=== PATIENT | male | born 1980 | race American Indian/Alaskan Native ===

== ENCOUNTER 2016-10-28 03:56 | Emergency (ER) | payer MEDICAID, MEDICARE ==
[2016-10-28 04:18] VITALS: BP 131/91
[2016-10-28 05:00] LABS: Basophils % (Auto) 0.9 % (0.0-1.8); Eosinophils % (Auto) 2.1 % (0.0-4.3); Hematocrit 44.3 % (35.5-45.6); Hemoglobin 14.4 gm/dl (11.8-15.2); Mean Corpuscular HGB Conc 33 % (32-34); Mean Corpuscular Hemoglobin 28 pg (28-32); Mean Corpuscular Volume 85 fl (84-94); Platelet Count 277 K/mm3 (140-440); Red Blood Count 5.19 M/mm3 (3.65-5.03); Red Cell Distribution Width 13.3 % (13.2-15.2); White Blood Count 13.3 K/mm3 (4.5-11.0)
[2016-10-28 05:17] LABS: Anion Gap 21 mmol/L; BUN/Creatinine Ratio 26.66; Blood Urea Nitrogen 24 mg/dL (9-20); Calcium 9.2 mg/dL (8.4-10.2); Carbon Dioxide 23 mmol/L (22-30); Chloride 100.1 mmol/L (98-107); Glucose 86 mg/dL (75-100); Potassium 4.1 mmol/L (3.6-5.0); Sodium 140 mmol/L (137-145)
[2016-10-28 06:49] LABS: Bilirubin,Urine NEG (Negative); Blood,Urine NEG (Negative); Ketones,Urine NEG (Negative); Leukocyte Esterase,Urine NEG (Negative); Nitrite,Urine NEG (Negative); Protein,Urine <15 mg/dL mg/dL (Negative); Urobilinogen,Urine < 2.0 mg/dL (<2.0)
--- NOTE | 2016-10-28 07:42 | XRay Report ---
ROUTINE CHEST, TWO VIEWS: HISTORY: Shortness of breath. The trachea, heart, mediastinal contour, lung dove and bony thorax are unremarkable. IMPRESSION: Unremarkable chest x-ray.
[2016-10-28] MEDS ORDERED: DUONEB *Not for PRN Use IH ONE (08:07)
--- NOTE | 2016-10-28 08:12 | Emergency Department Report ---
HPI - General Chief Complaint: Back Pain/Injury Time Seen by Provider: 10/28/16 07:54 - HPI HPI: This is a 36-year-old -[place] male who presents to the emergency Department after driving himself and be seen with complaint of a 3 week history of a productive cough. The cough comes in waves and causes coughing fits and the patient says that lately he has been having some chest wall pain when he coughs. He also has developed some lower bilateral back pain. He denies any problems with bowel or bladder, numbness or paresthesias or any neurological deficits. He denies any fever, nausea, vomiting or diaphoresis. He denies any past medical history. He is a former smoker having quit 6 months ago. He did not take anything for symptoms prior to presentation. His primary care physician is Dr. Fine at [facility]. ED Past Medical Hx - Past Medical History Previous Medical History?: Yes Hx Hypertension: Yes Hx Seizures: Yes - Surgical History Past Surgical History?: Yes Additional Surgical History: left leg surgery (fracture at age 15). - Social History Smoking Status: Former Smoker Substance Use Type: Alcohol, Marijuana - Medications Home Medications: Home Medications Medication Instructions Recorded Confirmed Last Taken Type Benzonatate [Tessalon Perles] 100 mg PO Q8HR #30 capsule 04/27/15 Unknown Rx Ciprofloxacin HCl [Ciprofloxacin 500 mg PO BID #14 tablet 04/27/15 Unknown Rx TAB] HYDROcodone/APAP 5-325 [[place] 1 - 2 each PO Q6HR PRN #14 tablet 04/27/15 Unknown Rx 5/325] Ibuprofen [Motrin 800 MG tab] 800 mg PO Q8HR PRN #20 tablet 04/27/15 Unknown Rx Clindamycin [Clindamycin CAP] 450 mg PO Q8H #30 cap 09/01/15 Unknown Rx Ibuprofen [Motrin 800 MG tab] 800 mg PO Q8HR PRN #30 tablet 09/01/15 Unknown Rx ALBUTEROL Inhaler [ProAir HFA 2 puff IH QID PRN #1 inhalation 10/28/16 Unknown Rx Inhaler] Benzonatate [Tessalon Perles] 100 mg PO Q8HR PRN #20 capsule 10/28/16 Unknown Rx ED Review of Systems ROS: Stated complaint: CHEST PAIN/BACK PAIN/COUGH Other details as noted in HPI Comment: All other systems reviewed and negative Constitutional: denies: chills, fever Eyes: denies: eye pain, eye discharge, vision change ENT: denies: ear pain, throat pain Respiratory: cough. denies: shortness of breath Cardiovascular: denies: palpitations, edema Gastrointestinal: denies: abdominal pain, nausea, diarrhea Genitourinary: denies: urgency, dysuria Musculoskeletal: back pain. denies: arthralgia Skin: denies: rash, lesions Neurological: denies: headache, weakness, paresthesias Physical Exam - Physical Exam Vital Signs: Vital Signs 10/28/16 04:11 Temperature 98.8 F Pulse Rate 96 H Respiratory 18 Rate Blood Pressure 131/91 Physical Exam: GENERAL: The patient is well-developed well-nourished. HEENT: Normocephalic. Atraumatic. Extraocular motions are intact. Patient has moist mucous membranes. Pupils equal reactive to light bilaterally. NECK: Supple. Trachea is midline. CHEST/LUNGS: Clear to auscultation. There is no respiratory distress noted. A productive sounding cough is heard during examination with some coughing fits. No tachypnea or accessory muscle use. HEART/CARDIOVASCULAR: Regular. There is no tachycardia. There is no gallop rub or murmur. ABDOMEN: Abdomen is soft, nontender. Patient has normal bowel sounds. There is no abdominal distention. SKIN: Skin is warm and dry. NEURO: The patient is awake, alert, and oriented. The patient is cooperative. The patient has no focal neurologic deficits. The patient has normal speech. MUSCULOSKELETAL: There is no tenderness or deformity. There is no limitation range of motion. There is no evidence of acute injury. BACK: No midline thoracic or lumbar tenderness to palpation or deformity. There is reproducible lumbar paraspinal tenderness to palpation. ED Course Vital Signs 10/28/16 04:11 Temperature 98.8 F Pulse Rate 96 H Respiratory 18 Rate Blood Pressure 131/91 ED Medical Decision Making - Lab Data Result diagrams: 10/28/16 04:32 10/28/16 04:32 - EKG Data -: EKG Interpreted by Me EKG shows normal: sinus rhythm, axis, intervals, QRS complexes (early repolarization), ST-T waves Rate: normal - EKG Data When compared to previous EKG there are: previous EKG unavailable Interpretation: normal EKG - Radiology Data Radiology results: image reviewed interpreted by me: Chest x-ray did not show any acute process. Heart is normal shape and size. No effusions. No pneumothorax. No signs of pneumonia seen. - Medical Decision Making 36-year-old male presents to the emergency department with a three-week history of a cough. The cough is heard during examination with coughing fits but the patient does not appear in any respiratory distress. Chest x-ray does not show any pneumonia, pleural effusions or any acute process. Since the patient had some chest discomfort with the coughing he was evaluated with an EKG and labs as well. EKG does not show any signs of ST elevation MO or ischemia. Labs are unremarkable except for a mild leukocytosis but there is negative troponins 2. He was given a breathing treatment here and he had some improvement. The patient does not have any significant risk factors for coronary artery disease and only has chest discomfort while coughing and this appears consistent with enteritis or pleurisy. Patient most likely has an episode of bronchitis. He' ll be discharged home on albuterol inhaler and Tessalon Perles. He will return to the ER with any worsening of symptoms or any acute distress. He does not appear to have any of the emergent back condition such as cauda equina, cord compression syndrome or epidural abscess. - Differential Diagnosis asthma, bronchitis, pneumonia, MO Critical Care Time: No Critical care attestation.: If time is entered above; I have spent that time in minutes in the direct care of this critically ill patient, excluding procedure time. ED Disposition Clinical Impression: Chest wall pain Acute bronchitis Qualifiers: Bronchitis organism: unspecified organism Qualified Code(s): J20.9 - Acute bronchitis, unspecified Back pain Qualifiers: Back pain location: low back pain Chronicity: unspecified Back pain laterality : bilateral Sciatica presence: without sciatica Qualified Code(s): M54.5 - Low back pain Disposition: DC- TO HOME OR SELFCARE Is pt being admited?: No Condition: Stable Instructions: Costochondritis (ED), Acute Bronchitis (ED) Additional Instructions: Please follow-up with a primary care physician in the next few days. Return to the emergency department with any worsening of your symptoms or any acute distress. Prescriptions: ALBUTEROL Inhaler [ProAir HFA Inhaler] 2 puff IH QID PRN #1 inhalation PRN Reason: Shortness Of Breath Benzonatate [Tessalon Perles] 100 mg PO Q8HR PRN #20 capsule PRN Reason: Cough Referrals: PRIMARY CARE, [Primary Care Provider] - 3-5 Days Time of Disposition: 08:49
== END 2016-10-28 08:56 | disposition home or self-care (01) ==
LOC: ED 03:56
DX: J20.9 Acute bronchitis, unspecified (principal); R07.89 Other chest pain; M54.5 Low back pain; I10 Essential (primary) hypertension; F12.10 Cannabis abuse, uncomplicated; Z87.891 Personal history of nicotine dependence
CPT/HCPCS: 36415; 71020; 80048; 81001; 84484; 85025; 93005; 93010; 94640; 99284

== ENCOUNTER 2017-01-06 20:56 | Emergency (ER) | payer MEDICARE ==
--- NOTE | 2017-01-06 23:01 | Cat Scan Report ---
FINAL REPORT EXAM: CT HEAD/BRAIN WO CON HISTORY: SUDDEN HEADACHE TECHNIQUE: Noncontrast CT axial images of the brain. PRIORS: None. FINDINGS: No parenchymal mass, mass effect, hemorrhage, midline shift or hydrocephalus. No evidence of acute cortical infarct. No abnormal, extra-axial fluid or air collection. Osseous calvarium grossly intact. Mucosal thickening and opacification of the left sphenoid sinus. IMPRESSION: 1. No acute intracranial findings. 2. Sphenoid sinus disease.
[2017-01-06 23:02] LABS: Basophils % (Auto) 0.3 % (0.0-1.8); Eosinophils % (Auto) 0.1 % (0.0-4.3); Hemoglobin 14.4 gm/dl (11.8-15.2); Mean Corpuscular HGB Conc 32 % (32-34); Mean Corpuscular Hemoglobin 28 pg (28-32); Mean Corpuscular Volume 87 fl (84-94); Platelet Count 219 K/mm3 (140-440); Red Cell Distribution Width 13.6 % (13.2-15.2); White Blood Count 15.2 K/mm3 (4.5-11.0)
[2017-01-06 23:09] LABS: Anion Gap 18 mmol/L; BUN/Creatinine Ratio 11.11; Blood Urea Nitrogen 10 mg/dL (9-20); Calcium 8.8 mg/dL (8.4-10.2); Carbon Dioxide 21 mmol/L (22-30); Chloride 104.5 mmol/L (98-107); Glucose 102 mg/dL (75-100); Potassium 4.1 mmol/L (3.6-5.0); Sodium 139 mmol/L (137-145)
[2017-01-06] MEDS ORDERED: TORADOL IV ONE (23:56)
[2017-01-06] MEDS ORDERED: REGLAN IV ONE (23:56)
[2017-01-06] MEDS ORDERED: KEPPRA 1,000 MG in D5W 100 ML IV STA (23:56)
[2017-01-06] MEDS ORDERED: NACL 0.9% 500 ML 500 ML IV ONE (23:56)
--- NOTE | 2017-01-06 23:57 | Emergency Department Report ---
ED General Adult HPI - General Chief complaint: Headache Stated complaint: HEADACHE, CHEST PAIN Time Seen by Provider: 01/06/17 23:44 Source: patient, family, RN notes reviewed, old records reviewed Mode of arrival: Ambulatory Limitations: No Limitations - History of Present Illness Initial comments: This is a 36-year-old male. The patient is previously unknown to me. Patient has a past medical history of cannabis consumption as well as seizure disorder. He reports taking Keppra, 500 mg supposed to be twice daily, he reports last taking his antiepileptic drugs this past Wednesday. He is accompanied by his friend, Mrs. Anel Rodriguez; [phone]. She reports that the patient had a seizure today, she reports the patient was in bed, and has had general convulsive-like activity. The patient was brought to the hospital by his mother. The patient does not have any recollection of this event, the patient complains of general headache, and lower back pain. The headache is throbbing and global. It is not sudden or thunderclap in nature. It did not reach maximal intensity within an hour, and he reports frequent headaches over the past few years. The back pain is in the bilateral lower back, it does not radiate anywhere, there is no bladder or bowel retention or incontinence, and there is no saddle anesthesia. He can't recall his last convulsive activity. -: week(s) Location: head, chest, back Severity scale (0 -10): 10 Consistency: intermittent Improves with: none Worsens with: none Associated Symptoms: confusion, headaches, loss of appetite, weakness - Related Data Home Medications Medication Instructions Recorded Confirmed Last Taken levETIRAcetam [Levetiracetam] 500 mg PO BID 01/06/17 01/06/17 01/05/17 Previous Rx's Medication Instructions Recorded Last Taken Type levETIRAcetam [Keppra TAB] 750 mg PO BID #60 tablet 01/07/17 Unknown Rx Allergies Allergy/AdvReac Type Severity Reaction Status Date / Time codeine Allergy Unknown Verified 04/27/15 06:52 Penicillins Allergy Unknown Verified 04/27/15 06:52 ED Review of Systems ROS: Stated complaint: HEADACHE, CHEST PAIN Other details as noted in HPI Constitutional: malaise, weakness. denies: fever Eyes: denies: vision change ENT: denies: epistaxis Respiratory: denies: cough Cardiovascular: denies: chest pain Gastrointestinal: denies: abdominal pain Genitourinary: denies: dysuria Musculoskeletal: back pain Neurological: headache Psychiatric: anxiety ED Past Medical Hx - Past Medical History Previous Medical History?: Yes Hx Hypertension: Yes Hx Seizures: Yes - Surgical History Past Surgical History?: Yes Additional Surgical History: left leg surgery (fracture at age 15). - Social History Smoking Status: Former Smoker Substance Use Type: None - Medications Home Medications: Home Medications Medication Instructions Recorded Confirmed Last Taken Type levETIRAcetam [Levetiracetam] 500 mg PO BID 01/06/17 01/06/17 01/05/17 History levETIRAcetam [Keppra TAB] 750 mg PO BID #60 tablet 01/07/17 Unknown Rx ED Physical Exam - General Limitations: No Limitations General appearance: alert, in no apparent distress - Head Head exam: Present: atraumatic, normocephalic - Eye Eye exam: Present: normal appearance, EOMI. Absent: nystagmus - ENT ENT exam: Present: normal exam, normal orophraynx, mucous membranes moist, normal external ear exam - Neck Neck exam: Present: normal inspection, full ROM. Absent: tenderness, meningismus - Respiratory Respiratory exam: Present: normal lung sounds bilaterally. Absent: respiratory distress, wheezes, rales, rhonchi, stridor, chest wall tenderness, accessory muscle use, decreased breath sounds, prolonged expiratory - Cardiovascular Cardiovascular Exam: Present: regular rate, normal rhythm, normal heart sounds. Absent: bradycardia, tachycardia, irregular rhythm, systolic murmur, diastolic murmur, rubs, gallop - GI/Abdominal GI/Abdominal exam: Present: soft, normal bowel sounds. Absent: distended, tenderness, guarding, rebound, rigid, pulsatile mass - Rectal Rectal exam: Present: deferred - Extremities Exam Extremities exam: Present: normal inspection, full ROM, normal capillary refill. Absent: pedal edema, joint swelling, calf tenderness - Back Exam Back exam: Present: normal inspection, full ROM, paraspinal tenderness - Neurological Exam Neurological exam: Present: alert, oriented X3 (patient is alert to name, month , location.), normal gait, other (Extraocular movements intact. Tongue midline. No facial droop. Facial sensation intact to light touch in the V1, V2 , V3 distribution bilaterally. 5 and 5 strength in 4 extremities.. Sensation is intact to light touch in 4 extremities.). Absent: motor sensory deficit - Psychiatric Psychiatric exam: Present: normal affect, normal mood - Skin Skin exam: Present: warm, dry, intact, normal color. Absent: rash ED Course Vital Signs 01/06/17 01/06/17 21:17 23:11 Temperature 97.9 F 98.1 F Pulse Rate 84 83 Respiratory 22 18 Rate Blood Pressure 138/88 Blood Pressure 155/76 [Left] O2 Sat by Pulse 96 99 Oximetry - Reevaluation(s) Reevaluation #1: 01/07/17 01:41 Patient had no complaint of chest pain or shortness of breath. EKG and troponin ordered prior to my evaluation. Based on the patient's history and physical, with a complaint of breakthrough seizure, headache and lower back pain , I do not believe he requires evaluation for acute coronary syndrome at this time. ED Medical Decision Making - Lab Data Result diagrams: 01/06/17 22:32 01/06/17 22:32 Vital Signs 01/06/17 01/06/17 21:17 23:11 Temperature 97.9 F 98.1 F Pulse Rate 84 83 Respiratory 22 18 Rate Blood Pressure 138/88 Blood Pressure 155/76 [Left] O2 Sat by Pulse 96 99 Oximetry Lab Results 01/06/17 01/06/17 01/06/17 Range/Units 00:18 22:32 22:32 WBC 15.2 H (4.5-11.0) K/mm3 RBC 5.20 H (3.65-5.03) M/mm3 Hgb 14.4 (11.8-15.2) gm/dl Hct 45.0 (35.5-45.6) % MCV 87 (84-94) fl MCH 28 (28-32) pg MCHC 32 (32-34) % RDW 13.6 (13.2-15.2) % Plt Count 219 (140-440) K/mm3 Lymph % (Auto) 10.3 L (13.4-35.0) % [place] % (Auto) 6.1 (0.0-7.3) % Eos % (Auto) 0.1 (0.0-4.3) % Baso % (Auto) 0.3 (0.0-1.8) % Lymph # 1.6 (1.2-5.4) K/mm3 [place] # 0.9 H (0.0-0.8) K/mm3 Eos # 0.0 (0.0-0.4) K/mm3 Baso # 0.1 (0.0-0.1) K/mm3 Seg Neutrophils % 83.2 H (40.0-70.0) % Seg Neutrophils # 12.7 H (1.8-7.7) K/mm3 Sodium 139 (137-145) mmol/L Potassium 4.1 (3.6-5.0) mmol/L Chloride 104.5 (98-107) mmol/L Carbon Dioxide 21 L (22-30) mmol/L Anion Gap 18 mmol/L BUN 10 (9-20) mg/dL Creatinine 0.9 (0.8-1.5) mg/dL Estimated GFR > 60 ml/min BUN/Creatinine Ratio 11.11 % Glucose 102 H (75-100) mg/dL Calcium 8.8 (8.4-10.2) mg/dL Total Creatine Kinase (55-170) units/L Troponin T < 0.010 (0.00-0.029) ng/mL Urine Color Yellow (Yellow) Urine Turbidity Turbid (Clear) Urine pH 5.0 (5.0-7.0) Ur Specific [place] 1.017 (1.003-1.030) Urine Protein <15 mg/dl (Negative) mg/dL Urine Glucose (UA) Neg (Negative) mg/dL Urine Ketones Tr (Negative) mg/dL Urine Blood Sm (Negative) Urine Nitrite Neg (Negative) Urine Bilirubin Neg (Negative) Urine Urobilinogen < 2.0 (<2.0) mg/dL Ur Leukocyte Esterase Neg (Negative) Urine WBC (Auto) 34.0 H (0.0-6.0) /HPF Urine RBC (Auto) 0.0 (0.0-6.0) /HPF U Epithel Cells (Auto) 1.0 (0-13.0) /HPF Uric Acid Crystals 3+ Urine Mucus Few /HPF Urine Opiates Screen Urine Methadone Screen Ur Barbiturates Screen Ur Phencyclidine Scrn Ur Amphetamines Screen U Benzodiazepines Scrn Urine Cocaine Screen U Marijuana (THC) Screen Drugs of Abuse Note 01/06/17 01/07/17 Range/Units 22:32 00:18 WBC (4.5-11.0) K/mm3 RBC (3.65-5.03) M/mm3 Hgb (11.8-15.2) gm/dl Hct (35.5-45.6) % MCV (84-94) fl MCH (28-32) pg MCHC (32-34) % RDW (13.2-15.2) % Plt Count (140-440) K/mm3 Lymph % (Auto) (13.4-35.0) % [place] % (Auto) (0.0-7.3) % Eos % (Auto) (0.0-4.3) % Baso % (Auto) (0.0-1.8) % Lymph # (1.2-5.4) K/mm3 [place] # (0.0-0.8) K/mm3 Eos # (0.0-0.4) K/mm3 Baso # (0.0-0.1) K/mm3 Seg Neutrophils % (40.0-70.0) % Seg Neutrophils # (1.8-7.7) K/mm3 Sodium (137-145) mmol/L Potassium (3.6-5.0) mmol/L Chloride (98-107) mmol/L Carbon Dioxide (22-30) mmol/L Anion Gap mmol/L BUN (9-20) mg/dL Creatinine (0.8-1.5) mg/dL Estimated GFR ml/min BUN/Creatinine Ratio % Glucose (75-100) mg/dL Calcium (8.4-10.2) mg/dL Total Creatine Kinase 228 H (55-170) units/L Troponin T (0.00-0.029) ng/mL Urine Color (Yellow) Urine Turbidity (Clear) Urine pH (5.0-7.0) Ur Specific [place] (1.003-1.030) Urine Protein (Negative) mg/dL Urine Glucose (UA) (Negative) mg/dL Urine Ketones (Negative) mg/dL Urine Blood (Negative) Urine Nitrite (Negative) Urine Bilirubin (Negative) Urine Urobilinogen (<2.0) mg/dL Ur Leukocyte Esterase (Negative) Urine WBC (Auto) (0.0-6.0) /HPF Urine RBC (Auto) (0.0-6.0) /HPF U Epithel Cells (Auto) (0-13.0) /HPF Uric Acid Crystals Urine Mucus /HPF Urine Opiates Screen Presumptive negative Urine Methadone Screen Presumptive negative Ur Barbiturates Screen Presumptive negative Ur Phencyclidine Scrn Presumptive negative Ur Amphetamines Screen Presumptive negative U Benzodiazepines Scrn Presumptive negative Urine Cocaine Screen Presumptive negative U Marijuana (THC) Screen Presumptive positive Drugs of Abuse Note Disclamer - EKG Data -: EKG Interpreted by Me - EKG Data 01/07/17 01:35 Normal sinus, 68 beats minute, normal intervals, normal axis, nonspecific ST abnormality, likely early repolarization, unchanged from prior from October 2016 - Radiology Data Radiology results: report reviewed, image reviewed Noncontrast CT scan of the brain is negative - Medical Decision Making Differential diagnosis: Chronic back pain, acute on chronic headache, breakthrough seizure, cannabis abuse, post ictal state, myalgias secondary to seizure, medication noncompliance Assessment and plan: 36-year-old male with the complaint of headache and back pain. Patient is afebrile, has a GCS of 15, with an NIH score of 0, treated symptomatically, loaded with 1 g of IV Keppra, and observed for a few hours. Mental status remained appropriate, patient felt improved, he was instructed not to drive cars or operate motor vehicles for the next 6 months, and he and his friend are instructed to discontinue cannabis consumption. Leukocytes and urine are appreciated and nonspecific, patient denies irritative and obstructive urinary symptoms and has no CVA tenderness, his history and physical are not consistent with epidural compression syndrome, he can follow up with the primary care doctor for this. In addition, patient's antiepileptic drugs will be increased to 750 mg twice daily, and he is instructed as to the importance of medication compliance. Critical care attestation.: If time is entered above; I have spent that time in minutes in the direct care of this critically ill patient, excluding procedure time. ED Disposition Clinical Impression: History of convulsions, Headache Disposition: -01 TO HOME OR SELFCARE Is pt being admited?: No Does the pt Need Aspirin: No Condition: Stable Instructions: Recurrent Seizures Adult (ED) Additional Instructions: Discontinue consumption of cannabis and marijuana. This is not healthy for the patient, and may predispose to breakthrough seizures. In addition, to take antiepileptic drug, kepra, as directed, and do not miss doses. Noncompliance with your seizure medication may result in breakthrough seizure, which in turn can result in disability, , paralysis, loss of quality of life. Do not drive your car or operate motor vehicles for the next 6 months. Follow up with a primary care doctor or neurologist within the next 7-10 days. Return to the ER right away with recurrent seizure, confusion, fever, intractable nausea or vomiting, inability to tolerate liquid feeds, chest pain or shortness of breath. Prescriptions: levETIRAcetam [Keppra TAB] 750 mg PO BID #60 tablet Referrals: PRIMARY CARE, [Primary Care Provider] - 3-5 Days MARCUS AGUIAR MD [Staff Physician] - 3-5 Days DONNA BLACKMON MD [Staff Physician] - 3-5 Days ELEUTERIO RAY MD [Staff Physician] - 3-5 Days CRISTY MENDIETA MD [Staff Physician] - 3-5 Days
[2017-01-07 00:10] VITALS: BP 155/76
[2017-01-07 00:43] LABS: Urine Drugs of Abuse Note Disclamer
[2017-01-07 00:57] LABS: Bilirubin,Urine NEG (Negative); Blood,Urine SM (Negative); Ketones,Urine TR mg/dL (Negative); Leukocyte Esterase,Urine NEG (Negative); Mucus,Urine FEW /HPF; Nitrite,Urine NEG (Negative); Protein,Urine <15 mg/dL mg/dL (Negative); Uric Acid Crystals,Urine 3+; Urobilinogen,Urine < 2.0 mg/dL (<2.0)
[2017-01-07] MEDS ORDERED: KEPPRA 1,000 MG/NS 0.75% 100ML 1,000 MG/100 ML BAG IV ONE (01:00)
== END 2017-01-07 01:49 | disposition home or self-care (01) ==
LOC: ED 20:56
DX: R51 Headache (principal); G40.909 Epilepsy, unspecified, not intractable, without status epilepticus; I10 Essential (primary) hypertension; Z87.891 Personal history of nicotine dependence; Z88.0 Allergy status to penicillin; Z88.6 Allergy status to analgesic agent
CPT/HCPCS: 36415; 51701; 70450; 80048; 80307; 81001; 82550; 84484; 85025; 93005; 93010; 96365; 96375; 99284; J1885; J1953; J2765; J7040